=== PATIENT | female | born 1975 | race Caucasian/White ===

== ENCOUNTER 2020-10-08 15:33 | Outpatient (REF) | payer MEDICAID, SELFPAY ==
--- NOTE | 2020-10-08 15:41 | US_ITS ---
EXAMINATION: US PELVIS, COMPLETE CLINICAL INFORMATION: Severe lower abdominal pain COMPARISON: CT abdomen and pelvis 05/05/2011 TECHNIQUE: Transabdominal and transvaginal imaging was performed. FINDINGS: LMP: 09/14/2020 Uterus is anteverted , measuring 7.8 x 3.8 x 4.8 cm. No focal uterine lesion. Question arcuate morphology on ultrasound. Endometrial thickness 0.85 cm. Nabothian cysts in the cervix. Right ovary measures 2.6 x 1.5 x 2.2 cm. Volume 4.5 mL. Left ovary measures 3.5 x 2.3 x 2.9 cm. Volume 11.1 mL. There is a 2.5 x 1.9 x 2.2 cm simple cyst. No free fluid in the cul-de-sac. US/US transvaginal IMPRESSION: 1. Question of arcuate morphology of the uterus. This can be further evaluated with MRI. 2. Left ovary 2.5 cm simple cyst.
--- NOTE | 2020-10-08 15:41 | US_ITS ---
EXAMINATION: US PELVIS, COMPLETE CLINICAL INFORMATION: Severe lower abdominal pain COMPARISON: CT abdomen and pelvis 05/05/2011 TECHNIQUE: Transabdominal and transvaginal imaging was performed. FINDINGS: LMP: 09/14/2020 Uterus is anteverted , measuring 7.8 x 3.8 x 4.8 cm. No focal uterine lesion. Question arcuate morphology on ultrasound. Endometrial thickness 0.85 cm. Nabothian cysts in the cervix. Right ovary measures 2.6 x 1.5 x 2.2 cm. Volume 4.5 mL. Left ovary measures 3.5 x 2.3 x 2.9 cm. Volume 11.1 mL. There is a 2.5 x 1.9 x 2.2 cm simple cyst. No free fluid in the cul-de-sac. US/US pelvic complete IMPRESSION: 1. Question of arcuate morphology of the uterus. This can be further evaluated with MRI. 2. Left ovary 2.5 cm simple cyst.
== END 2020-10-08 15:34 | disposition home or self-care (01) ==
LOC: HO.HMGCX 15:33
PROVIDERS: PCP Internal Medicine
DX: R10.30 Lower abdominal pain, unspecified (principal)
CPT/HCPCS: 76830; 76856

== ENCOUNTER 2021-09-27 03:41 | Emergency (ER) | payer MEDICAID, SELFPAY ==
[2021-09-27 03:44] VITALS: BP 172/93; PULSE 99; RESP 18; TEMP 36.4; O2SAT 97; BMI 21.2
[2021-09-27 04:39] LABS: MANUAL DIFF FLAG NO
[2021-09-27 04:40] LABS: Basophils Percent Auto 0.3 % (0-2); Eosinophils Absolute Auto 0.2 X10*3/uL (0.0-0.4); Eosinophils Percent Auto 2.2 % (0-4); Hematocrit 38.7 % (37.0-47.0); Imm Gran Abs Auto 0.01 X10*3/uL (0.00-0.03); Imm Gran Pct Auto 0.1 % (0.0-0.4); Lymphocytes Absolute Auto 1.6 X10*3/uL (1.2-4.9); Lymphocytes Percent Auto 24.3 % (20-40); Mean Corpuscular HGB Conc 36.2 g/dl (31.0-35.0); Mean Platelet Volume 9.1 fL (9.4-12.3); Monocytes Absolute Auto 0.5 X10*3/uL (0.1-1.2); Monocytes Percent Auto 7.6 % (2-11); Neutrophils Absolute Auto 4.36 x10*3/uL (2.0-8.3); Neutrophils Percent Auto 65.5 % (45-73); Platelet Count 290 X10*3/uL (160-400); Red Blood Count 4.66 X10*6/uL (4.20-5.50); Red Cell Distribution Width 12.8 % (11.0-16.0); White Blood Count 6.7 X10*3/uL (4.8-10.8)
[2021-09-27 04:56] LABS: Appearance Urine CLEAR; Color Urine YELLOW; Glucose Urine UA NEG (NEG); Leukocyte Esterase Urine NEG (NEG); Nitrite Urine NEG (NEG); Specific Gravity - Urine 1.025 (1.005-1.025); UACC Culture Trigger NO; Urine Blood TRACE (NEG); Urine Ketones >=80 MG/DL (NEG); Urine Protein NEG (NEG-TRACE)
[2021-09-27 04:56] LABS: Alanine Aminotransferase 10 U/L (0-31); Albumin Level 4.6 g/dL (3.5-5.0); Alkaline Phosphatase 48 U/L (39-117); Anion Gap 13 (12-20); Aspartate Amino Transferase 26 U/L (5-31); Bilirubin Total 0.7 mg/dL (0.0-1.0); Blood Urea Nitrogen 9 mg/dL (9-16); COVID-19 Test Negative (Negative); Calcium 10.7 mg/dL (8.4-10.2); Carbon Dioxide 31 mmol/L (22-29); Chloride 99 mmol/L (96-108); Creatinine Clr Calc Pharmacy 79.1; Estimated Glomerular Filt Rate > 60; Glucose Random 96 mg/dL (60-115); IDNOW Serial# 9DD0AD1C; Potassium 3.4 mmol/L (3.3-5.1); Sodium 140 mmol/L (135-145); Total Protein 7.6 g/dL (6.5-8.0)
[2021-09-27 04:59] LABS: Urine Pregnancy NEGATIVE (NEGATIVE)
[2021-09-27 05:00] LABS: UPreg QC Valid YES
[2021-09-27 05:03] LABS: Bacteria Urine 2+ /LPF; Mucus Urine 2+ /LPF; Squamous Epithelial Cell Urine 1+ /LPF
[2021-09-27] MEDS: 0.9 % Sodium Chloride 2,000 ML 999 ML IV (06:27)
[2021-09-27] MEDS: ondansetron HCL 4 MG/2 ML VIAL IVPUSH (06:28)
--- NOTE | 2021-09-27 07:15 | ED_ITS ---
HPI - General Adult General Chief complaint: General Medical Stated complaint: insomnia, vomiting Time Seen by Provider: 09/27/21 05:29 Source: patient Mode of arrival: ambulatory History of Present Illness HPI narrative: This is a 46-year-old female who presents with complaints of 3-4 days nonbloody nausea/vomiting without abdominal pain or diarrhea and denies any urinary pain/burning/frequency. Patient denies thinking that this was secondary to contaminated food. Patient states after this started she was unable to take her medications which include alprazolam and that she has struggled with insomnia since. In addition the patient endorses that she does smoke marijuana and the last use was approximately 3-4 days ago. Related Data Allergies Allergy/AdvReac Type Severity Reaction Status Date / Time apple [APPLES] Allergy Unknown ITCHY Verified 09/27/21 06:26 banana [BANANA] Allergy Unknown ANAPHYLAXIS Verified 09/27/21 06:26 carrot [CARROT] Allergy Unknown UNKNOWN Verified 09/27/21 06:26 peach [PEACHES] Allergy Unknown ITCHY Verified 09/27/21 06:26 pear [PEAR] Allergy Unknown ITCHING Verified 09/27/21 06:26 plum [PLUMS] Allergy Unknown ITCHY Verified 09/27/21 06:26 strawberry [STRAWBERRY] Allergy Unknown ITCHY Verified 09/27/21 06:26 vancomycin [Vancomycin] Allergy Unknown RASH, Verified 09/27/21 06:26 HIVES, hives ENVIRONMENTAL Allergy Unknown ITCHY Uncoded 08/14/20 15:19 Review of Systems Review of Systems: Pertinent positives and negatives as stated in HPI 10 point review of systems is otherwise negative. PMFSH Past Medical History Source: nursing notes reviewed Social History Social History Advance Directives: No Advance Directives Information Provided: Yes Patient : No Physical Exam Vital Signs: Vital Signs: Last Vital Signs Temp 97.6 F 09/27/21 03:44 Pulse 99 09/27/21 03:44 Resp 18 09/27/21 03:44 BP 172/93 H 09/27/21 03:44 Pulse Ox 97 09/27/21 03:44 Body Mass Index 21.2 VITAL SIGNS: Reviewed. GENERAL: Well developed, well nourished, in no acute distress. HEAD: Normocephalic/atraumatic EYES: PERRLA, EOMI OROPHARYNX: no oral lesions noted, posterior pharynx clear, dry mucosa NECK: Supple, no adenopathy LUNGS: Normal breath sounds. No adventitious sounds or accessory muscle use. SpO2<97> CARDIOVASCULAR: Regular rate and rhythm without noted murmurs ABDOMEN: Soft, non-tender, non-distended with bowel sounds. NEUROLOGIC: Alert and oriented x 4. Course Course Course Narrative: 46-year-old female with history and clinical presentation suggestive of cannabis related nausea/vomiting versus gastroenteritis sequence dehydration. Review of all investigations without acute findings to better explain patient's presentation. She is currently receiving 2 L of IV fluid resuscitation as well as antiemetic, and then will be given a p.o. challenge. Signed out to Dr Grey: Plan for discharge after tolerating oral intake and encourage patient to take her own prescription medications for her insomnia. Medical Decision Making Lab Data Result diagrams: 09/27/21 04:32 09/27/21 04:32 Labs: Lab Results 09/27/21 09/27/21 09/27/21 Range/Units 04:32 04:32 04:32 WBC 6.7 (4.8-10.8) X10*3/uL RBC 4.66 (4.20-5.50) X10*6/uL Hgb 14.0 (12.0-16.0) g/dl Hct 38.7 (37.0-47.0) % MCV 83.0 (80.0-98.0) fL MCH 30.0 (27.0-33.0) pg MCHC 36.2 H (31.0-35.0) g/dl RDW 12.8 (11.0-16.0) % Plt Count 290 (160-400) X10*3/uL MPV 9.1 L (9.4-12.3) fL Immature Gran % (Auto) 0.1 (0.0-0.4) % Neut % (Auto) 65.5 (45-73) % Lymph % (Auto) 24.3 (20-40) % [place] % (Auto) 7.6 (2-11) % Eos % (Auto) 2.2 (0-4) % Baso % (Auto) 0.3 (0-2) % Lymph # (Auto) 1.6 (1.2-4.9) X10*3/uL [place] # (Auto) 0.5 (0.1-1.2) X10*3/uL Eos # (Auto) 0.2 (0.0-0.4) X10*3/uL Baso # (Auto) 0.0 (0.0-0.2) X10*3/uL Abs Immat Gran (auto) 0.01 (0.00-0.03) X10*3/uL Absolute Neuts (auto) 4.36 (2.0-8.3) x10*3/uL Absolute Nucleated RBC 0.000 (0.0-0.012) X10*3/uL Nucleated RBC % (auto) 0.0 (0.0-0.2) /100WBC Sodium 140 (135-145) mmol/L Potassium 3.4 (3.3-5.1) mmol/L Chloride 99 (96-108) mmol/L Carbon Dioxide 31 H (22-29) mmol/L Anion Gap 13 (12-20) BUN 9 (9-16) mg/dL Creatinine 0.75 (0.5-1.4) mg/dL Estim Creat Clear Calc 79.1 Estimated GFR > 60 Random Glucose 96 (60-115) mg/dL Calcium 10.7 H (8.4-10.2) mg/dL Total Bilirubin 0.7 (0.0-1.0) mg/dL AST 26 (5-31) U/L ALT 10 (0-31) U/L Alkaline Phosphatase 48 (39-117) U/L Total Protein 7.6 (6.5-8.0) g/dL Albumin 4.6 (3.5-5.0) g/dL Urine Color Urine Appearance Urine pH (5.0-8.0) Ur Specific [place] (1.005-1.025) Urine Protein (NEG-TRACE) MG/DL Urine Glucose (UA) (NEG) MG/DL Urine Ketones (NEG) MG/DL Urine Blood (NEG) Urine Nitrite (NEG) Ur Leukocyte Esterase (NEG) Urine RBC (0) /HPF Urine WBC (0-4) /HPF Ur Squamous Epith Cells /LPF Urine Bacteria /LPF Urine Mucus /LPF Urine Test (NEGATIVE) COVID-19 (REGAN) Negative (Negative) COVID-19 Clin Com See Note 09/27/21 09/27/21 Range/Units 04:45 04:45 WBC (4.8-10.8) X10*3/uL RBC (4.20-5.50) X10*6/uL Hgb (12.0-16.0) g/dl Hct (37.0-47.0) % MCV (80.0-98.0) fL MCH (27.0-33.0) pg MCHC (31.0-35.0) g/dl RDW (11.0-16.0) % Plt Count (160-400) X10*3/uL MPV (9.4-12.3) fL Immature Gran % (Auto) (0.0-0.4) % Neut % (Auto) (45-73) % Lymph % (Auto) (20-40) % [place] % (Auto) (2-11) % Eos % (Auto) (0-4) % Baso % (Auto) (0-2) % Lymph # (Auto) (1.2-4.9) X10*3/uL [place] # (Auto) (0.1-1.2) X10*3/uL Eos # (Auto) (0.0-0.4) X10*3/uL Baso # (Auto) (0.0-0.2) X10*3/uL Abs Immat Gran (auto) (0.00-0.03) X10*3/uL Absolute Neuts (auto) (2.0-8.3) x10*3/uL Absolute Nucleated RBC (0.0-0.012) X10*3/uL Nucleated RBC % (auto) (0.0-0.2) /100WBC Sodium (135-145) mmol/L Potassium (3.3-5.1) mmol/L Chloride (96-108) mmol/L Carbon Dioxide (22-29) mmol/L Anion Gap (12-20) BUN (9-16) mg/dL Creatinine (0.5-1.4) mg/dL Estim Creat Clear Calc Estimated GFR Random Glucose (60-115) mg/dL Calcium (8.4-10.2) mg/dL Total Bilirubin (0.0-1.0) mg/dL AST (5-31) U/L ALT (0-31) U/L Alkaline Phosphatase (39-117) U/L Total Protein (6.5-8.0) g/dL Albumin (3.5-5.0) g/dL Urine Color YELLOW Urine Appearance CLEAR Urine pH 6.0 (5.0-8.0) Ur Specific [place] 1.025 (1.005-1.025) Urine Protein NEG (NEG-TRACE) MG/DL Urine Glucose (UA) NEG (NEG) MG/DL Urine Ketones >=80 (NEG) MG/DL Urine Blood TRACE (NEG) Urine Nitrite NEG (NEG) Ur Leukocyte Esterase NEG (NEG) Urine RBC 1-4 (0) /HPF Urine WBC 1-4 (0-4) /HPF Ur Squamous Epith Cells 1+ /LPF Urine Bacteria 2+ /LPF Urine Mucus 2+ /LPF Urine Test NEGATIVE (NEGATIVE) COVID-19 (REGAN) (Negative) COVID-19 Clin Com Discharge Plan Discharge Clinical Impression: Nausea & vomiting, Dehydration, Insomnia Patient Disposition: Home, Self-Care Instructions: Dehydration (ED), Acute Nausea and Vomiting (ED), Gastroenteritis (ED) Additional Instructions: 1. Resume all home medications as prescribed. Return to the ER for acute worsening of symptoms.
== END 2021-09-27 09:29 | disposition home or self-care (01) ==
PROVIDERS: Emergency Provider Emergency Medicine
DX: R11.2 Nausea with vomiting, unspecified (principal); E86.0 Dehydration; G47.00 Insomnia, unspecified; F12.90 Cannabis use, unspecified, uncomplicated; Z20.822 Contact with and (suspected) exposure to COVID-19
CPT/HCPCS: 36415; 80053; 81001; 81025; 85025; 87635; 96361; 96374; 99283; 99284; J2405

== ENCOUNTER 2022-01-11 12:51 | Emergency (ER) | payer MEDICAID, SELFPAY ==
--- NOTE | ~2022-01-11 | CT_ITS ---
EXAMINATION: CTA CHEST PE STUDY CLINICAL INFORMATION: SOB, JOHNSON, ? PE COMPARISON: No pertinent prior studies are available for comparison. TECHNIQUE: Prior to contrast administration, noncontrast localization images were obtained. After the administration of 65 mL of Omnipaque nonionic IV contrast, contiguous thin slice helical images were obtained through the thorax. Reformatted MIP images in the coronal and sagittal planes were obtained at the acquisition workstation. This CT examination was performed using dose optimization techniques as appropriate, variously including the following: *Automated exposure control *Adjustment of mA and/or kV according to patient size (this includes techniques or standardized protocols for targeted exams where dose is matched to indication/reason for exam; i.e. extremities or head) *Use of iterative reconstruction technique DLP: 673 mGy-cm. FINDINGS: The bolus timing on this study was acceptable for visualization of the pulmonary arterial tree. There are no intraluminal pulmonary arterial filling defects present to suggest pulmonary embolism. The lungs are clear. No abnormal pulmonary nodules or masses are appreciated. No significant hilar or mediastinal adenopathy. There is no evidence of pleural effusion or pneumothorax. The heart is normal in size. No evidence of ventricular septal bowing or right heart strain. Great vessels are normal. Otherwise the mediastinum is unremarkable. There is no pericardial effusion or pericardial thickening. Limited evaluation of the upper abdominal viscera is unremarkable. CT/CT angio chest PE protocol IMPRESSION: No evidence for pulmonary emboli. No focal airspace disease. VTE: Negative
--- NOTE | ~2022-01-11 | CT_ITS ---
EXAMINATION: CT HEAD WITHOUT CONTRAST CLINICAL INFORMATION: Dizziness. COMPARISON: CT scan of the head 06/07/2018. TECHNIQUE: Contiguous axial imaging was performed from the skull base to vertex without intravenous administration of contrast. This CT examination was performed using dose optimization techniques as appropriate, variously including the following: *Automated exposure control *Adjustment of mA and/or kV according to patient size (this includes techniques or standardized protocols for targeted exams where dose is matched to indication/reason for exam; i.e. extremities or head) *Use of iterative reconstruction technique DLP: 621 mGy-cm FINDINGS: There is no acute intracranial hemorrhage or abnormal extra-axial collection. No intracranial mass effect or midline shift. Lateral and third ventricles are normal. No hydrocephalus. Esquivel-white matter differentiation is preserved and there is no evidence acute territorial infarct. The calvarium and skull base are intact. Mastoid air cells and middle ear cavities are well aerated. No active paranasal sinus disease. CT/CT head/brain wo con IMPRESSION: Normal CT scan of the head.
--- NOTE | ~2022-01-11 | CT_ITS ---
EXAMINATION: CT ABDOMEN AND PELVIS WITH CONTRAST CLINICAL INFORMATION: Left lower quadrant abdominal pain and tenderness COMPARISON: 05/05/2000 and TECHNIQUE: Multidetector volumetric images were obtained from the superior aspect of the liver through the pubic symphysis following administration 65 mL of Omnipaque 350 intravenous contrast. Sagittal and coronal reformatted images were obtained on the technologist's workstation. Oral contrast: Not done This CT examination was performed using dose optimization techniques as appropriate, variously including the following: *Automated exposure control *Adjustment of mA and/or kV according to patient size (this includes techniques or standardized protocols for targeted exams where dose is matched to indication/reason for exam; i.e. extremities or head) *Use of iterative reconstruction technique DLP: 413.5 mGy-cm FINDINGS: LUNG BASES: The visualized lung bases are unremarkable. LIVER, GALLBLADDER, AND BILIARY TREE: The liver is normal in size, shape, and attenuation. No focal hepatic lesion or biliary ductal dilatation is present. The gallbladder is unremarkable with no evidence of radiopaque gallstones, gallbladder wall thickening, or obvious pericholecystic inflammatory changes. CBD is mildly prominent measured in pancreatic head 0.6 cm PANCREAS: Unremarkable. SPLEEN: Spleen is enlarged measured 12.8. ADRENAL GLANDS: Unremarkable. KIDNEYS AND URETERS: There are multiple cysts in the right kidney revealed largest in the lower pole measured 1.3 cm, parapelvic measured 2.4 x 2.5 cm an upper pole cyst measured 1.2 cm. There is no hydronephrosis on the right. Left kidney is unremarkable. BLADDER: Unremarkable. GASTROINTESTINAL TRACT: The small and large bowel are unremarkable. The appendix is unremarkable. There is large amount of fecal debris throughout the colon. No evidence of diverticulitis, diverticulosis, colitis, bowel obstruction. ABDOMINAL WALL: There is small fat-containing umbilical hernia. LYMPH NODES: Normal. VASCULAR: Unremarkable. 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 Adnexa are unremarkable. OSSEOUS STRUCTURES: Unremarkable. CT/CT abdomen pelvis w con IMPRESSION: Constipation. Multiple cysts in right kidney. Mildly prominent CBD. Fleischner guidelines were followed.
[2022-01-11 14:05] VITALS: BP 110/70; PULSE 84; RESP 17; TEMP 36.4; O2SAT 95; BMI 21.2
[2022-01-11 15:47] LABS: MANUAL DIFF FLAG NO
[2022-01-11 15:48] LABS: Basophils Percent Auto 0.3 % (0-2); Eosinophils Absolute Auto 0.1 X10*3/uL (0.0-0.4); Eosinophils Percent Auto 1.5 % (0-4); Hemoglobin 12.5 g/dl (12.0-16.0); Imm Gran Abs Auto 0.02 X10*3/uL (0.00-0.03); Imm Gran Pct Auto 0.3 % (0.0-0.4); Lymphocytes Absolute Auto 1.2 X10*3/uL (1.2-4.9); Mean Corpuscular HGB Conc 33.8 g/dl (31.0-35.0); Mean Corpuscular Volume 85.8 fL (80.0-98.0); Mean Platelet Volume 8.7 fL (9.4-12.3); Monocytes Absolute Auto 0.5 X10*3/uL (0.1-1.2); Neutrophils Absolute Auto 4.3 x10*3/uL (2.0-8.3); Neutrophils Percent Auto 70.9 % (45-73); Platelet Count 268 X10*3/uL (160-400); Red Blood Count 4.31 X10*6/uL (4.20-5.50); Red Cell Distribution Width 12.5 % (11.0-16.0); White Blood Count 6.1 X10*3/uL (4.8-10.8)
[2022-01-11 16:05] LABS: Alanine Aminotransferase 7 U/L (0-31); Alkaline Phosphatase 72 U/L (39-117); Anion Gap 9 (12-20); Aspartate Amino Transferase 14 U/L (5-31); Bilirubin Total 0.4 mg/dL (0.0-1.0); Blood Urea Nitrogen 13 mg/dL (9-16); Calcium 9.3 mg/dL (8.4-10.2); Carbon Dioxide 36 mmol/L (22-29); Chloride 102 mmol/L (96-108); Creatinine Clr Calc Pharmacy 76.1; Estimated Glomerular Filt Rate > 60; Glucose Random 72 mg/dL (60-115); Lipase 13 U/L (8-78); Sodium 143 mmol/L (135-145); Total Protein 7.3 g/dL (6.5-8.0)
--- NOTE | 2022-01-11 16:21 | ED_ITS ---
HPI - General Adult General Chief complaint: General Medical <Sandra Mccormack ENEIDA - Last Filed: 01/12/22 17:11> Stated complaint: SOB HEADACHE <Sandra MccormackENEIDA - Last Filed: 01/12/22 17:11> Time Seen by Provider: 01/11/22 15:50 <Sandra MccormackENEIDA - Last Filed: 01/12/22 17:11> Source: patient <Sandra Mccormack ENEIDA - Last Filed: 01/12/22 17:11> Mode of arrival: ambulatory <Sandra Mccormack ENEIDA - Last Filed: 01/12/22 17:11> Limitations: no limitations <Sandra Mccormack ENEIDA - Last Filed: 01/12/22 17:11> History of Present Illness HPI narrative: Patient is a 46-year-old female with a past medical history of substance use disorder, PTSD, depression, fibromyalgia, Emm[place] thyroiditis For which she is prescribed [place] Thyroid which she reports compliance with. Patient presents emergency department today with multiple complaints. She states that she has been having dizziness for about 1 week. It is described as the room spinning, with a sudden onset, it is episodic with ringing in her ears and nausea and vomiting. She is unable to determine whether it is made worse by movement or position changing. denies vision changes, hearing loss, drainage from the ears, ear pain, persistent headaches, unsteady gait. Patient reports the past 3 days she has been experiencing retrosternal chest pressure and intermittent palpitations in addition to shortness of breath while at rest that is worsened with exertion. She reports feeling shaking chills but is unaware as to whether she has had any fevers, she has not checked. She denies any nasal congestion, cough, sore throat. Patient is complaining of diffuse lower abdominal pain for 1 month associated with nausea and intermittent vomiting. In addition, she states that she typically has chronic constipation but over the past month has been having orange mucousy stools with every movement. denies bloody or dark emesis, bloody or dark stools, rectal pain, personal family history of colon cancer, recent unintentional weight loss, decreased appetite, urinary frequency / hesitancy /urgency, burning with micturition, abnormal vaginal bleeding, abnormal vaginal discharge, concern for STI, or possible . Patient is also requesting assistance with detox. Patient reports that she is sober from opiates for 7 years. she had been trying to wean off of her methadone and was on a very low dose but then had car difficulties and was unable to get to the methadone clinic. She reports after two days without methadone, about 3 weeks ago, she began injecting heroin intravenously to her bilateral arms. She states that she last used a couple hours prior to this interaction. She denies any additional drug usage. She denies any alcohol consumption. She reports that she was kicked out of her home and has been homeless for the past 4 weeks and she is very sad about this, but denies SI/HI. <Sandra Mccormack CNP - Last Filed: 01/12/22 17:11> Related Data Home medications: Home Medications Medication Instructions Recorded Confirmed alprazolam 1 mg tablet 1 tab PO QID PRN 01/12/22 01/12/22 topiramate 25 mg tablet 1 tab PO DAILY 01/12/22 01/12/22 <Sandra Mccormack CNP - Last Filed: 01/12/22 17:11> Allergies/adverse reactions: Allergies Allergy/AdvReac Type Severity Reaction Status Date / Time apple [APPLES] Allergy Unknown ITCHY Verified 09/27/21 06:26 banana [BANANA] Allergy Unknown ANAPHYLAXIS Verified 09/27/21 06:26 carrot [CARROT] Allergy Unknown UNKNOWN Verified 09/27/21 06:26 peach [PEACHES] Allergy Unknown ITCHY Verified 09/27/21 06:26 pear [PEAR] Allergy Unknown ITCHING Verified 09/27/21 06:26 plum [PLUMS] Allergy Unknown ITCHY Verified 09/27/21 06:26 strawberry [STRAWBERRY] Allergy Unknown ITCHY Verified 09/27/21 06:26 vancomycin [Vancomycin] Allergy Unknown RASH, Verified 09/27/21 06:26 HIVES, hives ENVIRONMENTAL Allergy Unknown ITCHY Uncoded 08/14/20 15:19 <Sandra Mccormack CNP - Last Filed: 01/12/22 17:11> Review of Systems Review of Systems: Constitutional: + chills, fatigue. No weight loss, we akness. HEENT: + Tinnitus. No visual loss, blurred vision, double vision or yellow sclera. No hearing loss, sneezing, congestion, runny nose or sore throat. Skin: No rash or itching. Cardiovascular:+ chest pressure, palpitations. No pedal edema. Respiratory: + shortness of breath, dyspnea on exertion. No cough or sputum production. Gastrointestinal: + nausea, vomiting, abnormal stools, abdominal pain. No anorexia or diarrhea. No blood in stool. Genitourinary: No burning micturition. No urinary frequency or incontinence. Neurologic: + dizziness. No headache, syncope, unilateral weakness, ataxia, numbness or tingling in the extremities. No change in bowel or bladder control. Musculoskeletal: No muscle pain, back pain, joint pain or stiffness. Hematologic: No bleeding or bruising. Lymphatics: No enlarged lymph nodes. Psychiatric: + depression, denies suicidal ideations, denies homicidal ideations.. Endocrine: No reports of sweating. No cold or heat intolerance. No polyuria or polydipsia. <Sandra Mccormack CNP - Last Filed: 01/12/22 17:11> FOR[facility], LAT[facility] Past Medical History Attestation statement: The following information was validated with the patient. <Sandra Mccormack CNP - Last Filed: 01/12/22 17:11> Source: old records reviewed <Sandra Mccomrack CNP - Last Filed: 01/12/22 17:11> Social History Social History: Social History Advance Directives: No Advance Directives Information Provided: Yes Patient : No <Sandra Mccormack CNP - Last Filed: 01/12/22 17:11> Physical Exam ED Vital Signs: Vital Signs - 24 hr 01/12/22 00:39 01/12/22 07:13 01/12/22 10:47 Temperature 98.1 F Pulse Rate 73 69 59 Respiratory Rate 12 14 14 Blood Pressure 124/80 107/60 84/47 L Pulse Oximetry 95 94 96 01/12/22 14:13 01/12/22 15:48 01/12/22 18:41 Temperature 98.1 F 97.9 F Pulse Rate 71 73 64 Respiratory Rate 14 20 20 Blood Pressure 100/66 101/61 102/74 Pulse Oximetry 97 97 98 BMI result Body Mass Index 21.2 Vital signs have been reviewed as normal and appeared to be correct. Blood pressure normal.? Heart rate normal.? Respiration rate normal. Temperature normal.? Oxygen saturation normal. <Sandra Mccormack CNP - Last Filed: 01/12/22 17:11> Vital Signs - 24 hr 01/12/22 00:39 01/12/22 07:13 01/12/22 10:47 Temperature 98.1 F Pulse Rate 73 69 59 Respiratory Rate 12 14 14 Blood Pressure 124/80 107/60 84/47 L Pulse Oximetry 95 94 96 01/12/22 14:13 01/12/22 15:48 01/12/22 18:41 Temperature 98.1 F 97.9 F Pulse Rate 71 73 64 Respiratory Rate 14 20 20 Blood Pressure 100/66 101/61 102/74 Pulse Oximetry 97 97 98 BMI result Body Mass Index 21.2 <MAT Park - Last Filed: 01/12/22 19:46> Appearance: Alert.?Oriented to person, place and time. No acute distress.?Normal affect. Head: Normocephalic, atraumatic. No head, sinus or TMJ tenderness.? Eyes: Sclera white, conjunctiva pink. PERRL, 3 mm bilaterally. Visual pierce full to confrontation, EOMi.?No Nystagmus. Ears: Bilateral ear canals clear, TM visible with good cone of light.? Nose: Nasal mucosa pink and moist with midline septum, nares patent bilaterally.? Mouth/ Throat: Oral mucosa pink and moist without lesions. Pharynx without exudate, tonsils symmetric, no adenopathy.??? Neck: Normal inspection.? Neck supple.?? CVS: Heart sounds normal. Normal heart rate and rhythm.? Pulses normal.?No JVD.? Respiratory: No respiratory distress.? Lung sounds clear to auscultation bilaterally?? Abdomen: + tenderness to palpation to the diffuse lower abdomen. Normoactive bowel sounds. No pulsatile mass.?? Skin: Skin warm and dry.?skin color appears slightly pale for ethnicity. Normal skin turgor.??yellow discoloration surrounding injection sites to the bilateral forearms free from erythema, swelling, active drainage, no abscess. Extremities: No lower extremity edema.? No calf ttp? Neuro: Moves all extremities spontaneously. Sensation intact bilaterally. No focal neuro deficits. CN II-XII intact. Ambulates with normal steady gait. Level of consciousness: Appropriate for age. motor strength to right and left upper extremity 5/5, right and left lower extremity 5/5. Speech is normal. <Sandra Mccormack CNP - Last Filed: 01/12/22 17:11> Course Course Course Narrative: Patient is a 46-year-old female presenting to emergency department for multiple complaints as noted in HPI. she appears fatigued, she is hemodynamically stable with no hypotension, no tachycardia, she is afebrile, no hypoxia. Will obtain CBC to evaluate for leukocytosis/ anemia, CMP and lipase to evaluate for abnormal electrolytes/abnormal renal function/ abnormal hepatic / biliary function, TSH evaluate for abnormal thyroid function, troponin and EKG to evaluate for ischemia, in the setting of recent IV drug usage, will obtain sed rate and CRP to evaluate for endocarditis, COVID-19 testing will be obtained, given the duration of her abnormal stools will obtain stool cultures/ WBC/ O&P/C difficile, urinalysis evaluate for urinary tract infection and urine test, in addition to drug abuse screen. CT of the head to exclude intracranial pathology, CT of the abdomen to evaluate for colitis, diverticuliti s her CT angio of the chest to evaluate for pulmonary embolism. patient received normal saline 1 L IVF, Zofran IV for nausea, Toradol IV for pain. Disposition will be pending results. Once medically cleared, patient can be evaluated by head track coach for assistance with detox. <Sandra Mccormack CNP - Last Filed: 01/12/22 17:11> Reevaluation(s) Reevaluation #1: CBC and CMP are overall unremarkable, lipase is normal. EKG without any concerns for acute ischemia. Patient signed out to [facility] [place] [facility] pending labs, CT head, CT chest, CT abdomen, urinalysis, stool studies, evaluation with a head track coach <Sandra Mccormack CNP - Last Filed: 01/12/22 17:11> Time: 17:31 <Sandra Mccormack CNP - Last Filed: 01/12/22 17:11> Reevaluation #2: Patient to be discharged to [facility]. <MAT Park - Last Filed: 01/12/22 19:46> Time: 20:00 <MAT Park - Last Filed: 01/12/22 19:46> Medical Decision Making Lab Data Result diagrams: : 01/11/22 15:39 01/11/22 15:39 <Sandra Mccormack CNP - Last Filed: 01/12/22 17:11> Labs: Lab Results 01/11/22 01/11/22 01/11/22 Range/Units 15:39 15:39 15:39 WBC 6.1 (4.8-10.8) X10*3/uL RBC 4.31 (4.20-5.50) X10*6/uL Hgb 12.5 (12.0-16.0) g/dl Hct 37.0 (37.0-47.0) % MCV 85.8 (80.0-98.0) fL MCH 29.0 (27.0-33.0) pg MCHC 33.8 (31.0-35.0) g/dl RDW 12.5 (11.0-16.0) % Plt Count 268 (160-400) X10*3/uL MPV 8.7 L (9.4-12.3) fL Immature Gran % (Auto) 0.3 (0.0-0.4) % Neut % (Auto) 70.9 (45-73) % Lymph % (Auto) 19.0 L (20-40) % [place] % (Auto) 8.0 (2-11) % Eos % (Auto) 1.5 (0-4) % Baso % (Auto) 0.3 (0-2) % Lymph # (Auto) 1.2 (1.2-4.9) X10*3/uL [place] # (Auto) 0.5 (0.1-1.2) X10*3/uL Eos # (Auto) 0.1 (0.0-0.4) X10*3/uL Baso # (Auto) 0.0 (0.0-0.2) X10*3/uL Abs Immat Gran (auto) 0.02 (0.00-0.03) X10*3/uL Absolute Neuts (auto) 4.3 (2.0-8.3) x10*3/uL Absolute Nucleated RBC 0.000 (0.0-0.012) X10*3/uL Nucleated RBC % (auto) 0.0 (0.0-0.2) /100WBC ESR 12 (0-20) MM/HR D-Dimer High Sensitivty NG/ML Sodium 143 (135-145) mmol/L Potassium 4.0 (3.3-5.1) mmol/L Chloride 102 (96-108) mmol/L Carbon Dioxide 36 H (22-29) mmol/L Anion Gap 9 L (12-20) BUN 13 (9-16) mg/dL Creatinine 0.78 (0.5-1.4) mg/dL Estim Creat Clear Calc 76.1 Estimated GFR > 60 Random Glucose 72 (60-115) mg/dL Calcium 9.3 D (8.4-10.2) mg/dL Total Bilirubin 0.4 (0.0-1.0) mg/dL AST 14 D (5-31) U/L ALT 7 (0-31) U/L Alkaline Phosphatase 72 D (39-117) U/L Troponin I High Sens (<3.5-17.0) ng/L C-Reactive Protein (< or = 0.50) mg/dL Total Protein 7.3 (6.5-8.0) g/dL Albumin 4.0 (3.5-5.0) g/dL Lipase 13 (8-78) U/L TSH (0.32-4.0) uIU/mL Urine Color Urine Appearance Urine pH (5.0-8.0) Ur Specific [place] (1.005-1.025) Urine Protein (NEG-TRACE) MG/DL Urine Glucose (UA) (NEG) MG/DL Urine Ketones (NEG) MG/DL Urine Blood (NEG) Urine Nitrite (NEG) Ur Leukocyte Esterase (NEG) Urine Test (NEGATIVE) Stool Leukocytes, Qual (NEGATIVE) Urine Opiates Screen (Not Detect) Urine Fentanyl Screen (Not Detect) Ur Barbiturates Screen (Not Detect) Ur Phencyclidine Scrn (Not Detect) Ur Amphetamines Screen (Not Detect) U Benzodiazepines Scrn (Not Detect) Urine Cocaine Screen (Not Detect) U Marijuana (THC) Screen (Not Detect) C. difficile Tox B Gene COVID-19 (ERGAN) (Negative) COVID-19 Clin Com 01/11/22 01/11/22 01/11/22 Range/Units 16:58 16:58 16:59 WBC (4.8-10.8) X10*3/uL RBC (4.20-5.50) X10*6/uL Hgb (12.0-16.0) g/dl Hct (37.0-47.0) % MCV (80.0-98.0) fL MCH (27.0-33.0) pg MCHC (31.0-35.0) g/dl RDW (11.0-16.0) % Plt Count (160-400) X10*3/uL MPV (9.4-12.3) fL Immature Gran % (Auto) (0.0-0.4) % Neut % (Auto) (45-73) % Lymph % (Auto) (20-40) % [place] % (Auto) (2-11) % Eos % (Auto) (0-4) % Baso % (Auto) (0-2) % Lymph # (Auto) (1.2-4.9) X10*3/uL [place] # (Auto) (0.1-1.2) X10*3/uL Eos # (Auto) (0.0-0.4) X10*3/uL Baso # (Auto) (0.0-0.2) X10*3/uL Abs Immat Gran (auto) (0.00-0.03) X10*3/uL Absolute Neuts (auto) (2.0-8.3) x10*3/uL Absolute Nucleated RBC (0.0-0.012) X10*3/uL Nucleated RBC % (auto) (0.0-0.2) /100WBC ESR (0-20) MM/HR D-Dimer High Sensitivty < 150 NG/ML Sodium (135-145) mmol/L Potassium (3.3-5.1) mmol/L Chloride (96-108) mmol/L Carbon Dioxide (22-29) mmol/L Anion Gap (12-20) BUN (9-16) mg/dL Creatinine (0.5-1.4) mg/dL Estim Creat Clear Calc Estimated GFR Random Glucose (60-115) mg/dL Calcium (8.4-10.2) mg/dL Total Bilirubin (0.0-1.0) mg/dL AST (5-31) U/L ALT (0-31) U/L Alkaline Phosphatase (39-117) U/L Troponin I High Sens (<3.5-17.0) ng/L C-Reactive Protein (< or = 0.50) mg/dL Total Protein (6.5-8.0) g/dL Albumin (3.5-5.0) g/dL Lipase (8-78) U/L TSH (0.32-4.0) uIU/mL Urine Color YELLOW Urine Appearance CLEAR Urine pH 6.0 (5.0-8.0) Ur Specific [place] >= 1.030 H (1.005-1.025) Urine Protein NEG (NEG-TRACE) MG/DL Urine Glucose (UA) NEG (NEG) MG/DL Urine Ketones NEG (NEG) MG/DL Urine Blood NEG (NEG) Urine Nitrite NEG (NEG) Ur Leukocyte Esterase NEG (NEG) Urine Test NEGATIVE (NEGATIVE) Stool Leukocytes, Qual (NEGATIVE) Urine Opiates Screen (Not Detect) Urine Fentanyl Screen (Not Detect) Ur Barbiturates Screen (Not Detect) Ur Phencyclidine Scrn (Not Detect) Ur Amphetamines Screen (Not Detect) U Benzodiazepines Scrn (Not Detect) Urine Cocaine Screen (Not Detect) U Marijuana (THC) Screen (Not Detect) C. difficile Tox B Gene COVID-19 (REGAN) (Negative) COVID-19 Clin Com 01/11/22 01/11/22 01/11/22 Range/Units 16:59 16:59 16:59 WBC (4.8-10.8) X10*3/uL RBC (4.20-5.50) X10*6/uL Hgb (12.0-16.0) g/dl Hct (37.0-47.0) % MCV (80.0-98.0) fL MCH (27.0-33.0) pg MCHC (31.0-35.0) g/dl RDW (11.0-16.0) % Plt Count (160-400) X10*3/uL MPV (9.4-12.3) fL Immature Gran % (Auto) (0.0-0.4) % Neut % (Auto) (45-73) % Lymph % (Auto) (20-40) % [place] % (Auto) (2-11) % Eos % (Auto) (0-4) % Baso % (Auto) (0-2) % Lymph # (Auto) (1.2-4.9) X10*3/uL [place] # (Auto) (0.1-1.2) X10*3/uL Eos # (Auto) (0.0-0.4) X10*3/uL Baso # (Auto) (0.0-0.2) X10*3/uL Abs Immat Gran (auto) (0.00-0.03) X10*3/uL Absolute Neuts (auto) (2.0-8.3) x10*3/uL Absolute Nucleated RBC (0.0-0.012) X10*3/uL Nucleated RBC % (auto) (0.0-0.2) /100WBC ESR (0-20) MM/HR D-Dimer High Sensitivty NG/ML Sodium (135-145) mmol/L Potassium (3.3-5.1) mmol/L Chloride (96-108) mmol/L Carbon Dioxide (22-29) mmol/L Anion Gap (12-20) BUN (9-16) mg/dL Creatinine (0.5-1.4) mg/dL Estim Creat Clear Calc Estimated GFR Random Glucose (60-115) mg/dL Calcium (8.4-10.2) mg/dL Total Bilirubin (0.0-1.0) mg/dL AST (5-31) U/L ALT (0-31) U/L Alkaline Phosphatase (39-117) U/L Troponin I High Sens < 3.5 (<3.5-17.0) ng/L C-Reactive Protein 0.34 (< or = 0.50) mg/dL Total Protein (6.5-8.0) g/dL Albumin (3.5-5.0) g/dL Lipase (8-78) U/L TSH 1.08 (0.32-4.0) uIU/mL Urine Color Urine Appearance Urine pH (5.0-8.0) Ur Specific [place] (1.005-1.025) Urine Protein (NEG-TRACE) MG/DL Urine Glucose (UA) (NEG) MG/DL Urine Ketones (NEG) MG/DL Urine Blood (NEG) Urine Nitrite (NEG) Ur Leukocyte Esterase (NEG) Urine Test (NEGATIVE) Stool Leukocytes, Qual (NEGATIVE) Urine Opiates Screen (Not Detect) Urine Fentanyl Screen (Not Detect) Ur Barbiturates Screen (Not Detect) Ur Phencyclidine Scrn (Not Detect) Ur Amphetamines Screen (Not Detect) U Benzodiazepines Scrn (Not Detect) Urine Cocaine Screen (Not Detect) U Marijuana (THC) Screen (Not Detect) C. difficile Tox B Gene COVID-19 (REGAN) Negative (Negative) COVID-19 Clin Com See Note 01/11/22 01/11/22 01/12/22 Range/Units 19:30 19:30 00:55 WBC (4.8-10.8) X10*3/uL RBC (4.20-5.50) X10*6/uL Hgb (12.0-16.0) g/dl Hct (37.0-47.0) % MCV (80.0-98.0) fL MCH (27.0-33.0) pg MCHC (31.0-35.0) g/dl RDW (11.0-16.0) % Plt Count (160-400) X10*3/uL MPV (9.4-12.3) fL Immature Gran % (Auto) (0.0-0.4) % Neut % (Auto) (45-73) % Lymph % (Auto) (20-40) % [place] % (Auto) (2-11) % Eos % (Auto) (0-4) % Baso % (Auto) (0-2) % Lymph # (Auto) (1.2-4.9) X10*3/uL [place] # (Auto) (0.1-1.2) X10*3/uL Eos # (Auto) (0.0-0.4) X10*3/uL Baso # (Auto) (0.0-0.2) X10*3/uL Abs Immat Gran (auto) (0.00-0.03) X10*3/uL Absolute Neuts (auto) (2.0-8.3) x10*3/uL Absolute Nucleated RBC (0.0-0.012) X10*3/uL Nucleated RBC % (auto) (0.0-0.2) /100WBC ESR (0-20) MM/HR D-Dimer High Sensitivty NG/ML Sodium (135-145) mmol/L Potassium (3.3-5.1) mmol/L Chloride (96-108) mmol/L Carbon Dioxide (22-29) mmol/L Anion Gap (12-20) BUN (9-16) mg/dL Creatinine (0.5-1.4) mg/dL Estim Creat Clear Calc Estimated GFR Random Glucose (60-115) mg/dL Calcium (8.4-10.2) mg/dL Total Bilirubin (0.0-1.0) mg/dL AST (5-31) U/L ALT (0-31) U/L Alkaline Phosphatase (39-117) U/L Troponin I High Sens (<3.5-17.0) ng/L C-Reactive Protein (< or = 0.50) mg/dL Total Protein (6.5-8.0) g/dL Albumin (3.5-5.0) g/dL Lipase (8-78) U/L TSH (0.32-4.0) uIU/mL Urine Color Urine Appearance Urine pH (5.0-8.0) Ur Specific [place] (1.005-1.025) Urine Protein (NEG-TRACE) MG/DL Urine Glucose (UA) (NEG) MG/DL Urine Ketones (NEG) MG/DL Urine Blood (NEG) Urine Nitrite (NEG) Ur Leukocyte Esterase (NEG) Urine Test (NEGATIVE) Stool Leukocytes, Qual NEGATIVE (NEGATIVE) Urine Opiates Screen Not Detected (Not Detect) Urine Fentanyl Screen POSITIVE H (Not Detect) Ur Barbiturates Screen Not Detected (Not Detect) Ur Phencyclidine Scrn Not Detected (Not Detect) Ur Amphetamines Screen Not Detected (Not Detect) U Benzodiazepines Scrn POSITIVE H (Not Detect) Urine Cocaine Screen Not Detected (Not Detect) U Marijuana (THC) Screen POSITIVE H (Not Detect) C. difficile Tox B Gene Cancelled COVID-19 (REGAN) (Negative) COVID-19 Clin Com <Sandra Mccormack CNP - Last Filed: 01/12/22 17:11> Lab Results 01/11/22 01/11/22 01/11/22 Range/Units 15:39 15:39 15:39 WBC 6.1 (4.8-10.8) X10*3/uL RBC 4.31 (4.20-5.50) X10*6/uL Hgb 12.5 (12.0-16.0) g/dl Hct 37.0 (37.0-47.0) % MCV 85.8 (80.0-98.0) fL MCH 29.0 (27.0-33.0) pg MCHC 33.8 (31.0-35.0) g/dl RDW 12.5 (11.0-16.0) % Plt Count 268 (160-400) X10*3/uL MPV 8.7 L (9.4-12.3) fL Immature Gran % (Auto) 0.3 (0.0-0.4) % Neut % (Auto) 70.9 (45-73) % Lymph % (Auto) 19.0 L (20-40) % [place] % (Auto) 8.0 (2-11) % Eos % (Auto) 1.5 (0-4) % Baso % (Auto) 0.3 (0-2) % Lymph # (Auto) 1.2 (1.2-4.9) X10*3/uL [place] # (Auto) 0.5 (0.1-1.2) X10*3/uL Eos # (Auto) 0.1 (0.0-0.4) X10*3/uL Baso # (Auto) 0.0 (0.0-0.2) X10*3/uL Abs Immat Gran (auto) 0.02 (0.00-0.03) X10*3/uL Absolute Neuts (auto) 4.3 (2.0-8.3) x10*3/uL Absolute Nucleated RBC 0.000 (0.0-0.012) X10*3/uL Nucleated RBC % (auto) 0.0 (0.0-0.2) /100WBC ESR 12 (0-20) MM/HR D-Dimer High Sensitivty NG/ML Sodium 143 (135-145) mmol/L Potassium 4.0 (3.3-5.1) mmol/L Chloride 102 (96-108) mmol/L Carbon Dioxide 36 H (22-29) mmol/L Anion Gap 9 L (12-20) BUN 13 (9-16) mg/dL Creatinine 0.78 (0.5-1.4) mg/dL Estim Creat Clear Calc 76.1 Estimated GFR > 60 Random Glucose 72 (60-115) mg/dL Calcium 9.3 D (8.4-10.2) mg/dL Total Bilirubin 0.4 (0.0-1.0) mg/dL AST 14 D (5-31) U/L ALT 7 (0-31) U/L Alkaline Phosphatase 72 D (39-117) U/L Troponin I High Sens (<3.5-17.0) ng/L C-Reactive Protein (< or = 0.50) mg/dL Total Protein 7.3 (6.5-8.0) g/dL Albumin 4.0 (3.5-5.0) g/dL Lipase 13 (8-78) U/L TSH (0.32-4.0) uIU/mL Urine Color Urine Appearance Urine pH (5.0-8.0) Ur Specific [place] (1.005-1.025) Urine Protein (NEG-TRACE) MG/DL Urine Glucose (UA) (NEG) MG/DL Urine Ketones (NEG) MG/DL Urine Blood (NEG) Urine Nitrite (NEG) Ur Leukocyte Esterase (NEG) Urine Test (NEGATIVE) Stool Leukocytes, Qual (NEGATIVE) Urine Opiates Screen (Not Detect) Urine Fentanyl Screen (Not Detect) Ur Barbiturates Screen (Not Detect) Ur Phencyclidine Scrn (Not Detect) Ur Amphetamines Screen (Not Detect) U Benzodiazepines Scrn (Not Detect) Urine Cocaine Screen (Not Detect) U Marijuana (THC) Screen (Not Detect) C. difficile Tox B Gene COVID-19 (REGAN) (Negative) COVID-19 Clin Com 01/11/22 01/11/22 01/11/22 Range/Units 16:58 16:58 16:59 WBC (4.8-10.8) X10*3/uL RBC (4.20-5.50) X10*6/uL Hgb (12.0-16.0) g/dl Hct (37.0-47.0) % MCV (80.0-98.0) fL MCH (27.0-33.0) pg MCHC (31.0-35.0) g/dl RDW (11.0-16.0) % Plt Count (160-400) X10*3/uL MPV (9.4-12.3) fL Immature Gran % (Auto) (0.0-0.4) % Neut % (Auto) (45-73) % Lymph % (Auto) (20-40) % [place] % (Auto) (2-11) % Eos % (Auto) (0-4) % Baso % (Auto) (0-2) % Lymph # (Auto) (1.2-4.9) X10*3/uL [place] # (Auto) (0.1-1.2) X10*3/uL Eos # (Auto) (0.0-0.4) X10*3/uL Baso # (Auto) (0.0-0.2) X10*3/uL Abs Immat Gran (auto) (0.00-0.03) X10*3/uL Absolute Neuts (auto) (2.0-8.3) x10*3/uL Absolute Nucleated RBC (0.0-0.012) X10*3/uL Nucleated RBC % (auto) (0.0-0.2) /100WBC ESR (0-20) MM/HR D-Dimer High Sensitivty < 150 NG/ML Sodium (135-145) mmol/L Potassium (3.3-5.1) mmol/L Chloride (96-108) mmol/L Carbon Dioxide (22-29) mmol/L Anion Gap (12-20) BUN (9-16) mg/dL Creatinine (0.5-1.4) mg/dL Estim Creat Clear Calc Estimated GFR Random Glucose (60-115) mg/dL Calcium (8.4-10.2) mg/dL Total Bilirubin (0.0-1.0) mg/dL AST (5-31) U/L ALT (0-31) U/L Alkaline Phosphatase (39-117) U/L Troponin I High Sens (<3.5-17.0) ng/L C-Reactive Protein (< or = 0.50) mg/dL Total Protein (6.5-8.0) g/dL Albumin (3.5-5.0) g/dL Lipase (8-78) U/L TSH (0.32-4.0) uIU/mL Urine Color YELLOW Urine Appearance CLEAR Urine pH 6.0 (5.0-8.0) Ur Specific [place] >= 1.030 H (1.005-1.025) Urine Protein NEG (NEG-TRACE) MG/DL Urine Glucose (UA) NEG (NEG) MG/DL Urine Ketones NEG (NEG) MG/DL Urine Blood NEG (NEG) Urine Nitrite NEG (NEG) Ur Leukocyte Esterase NEG (NEG) Urine Test NEGATIVE (NEGATIVE) Stool Leukocytes, Qual (NEGATIVE) Urine Opiates Screen (Not Detect) Urine Fentanyl Screen (Not Detect) Ur Barbiturates Screen (Not Detect) Ur Phencyclidine Scrn (Not Detect) Ur Amphetamines Screen (Not Detect) U Benzodiazepines Scrn (Not Detect) Urine Cocaine Screen (Not Detect) U Marijuana (THC) Screen (Not Detect) C. difficile Tox B Gene COVID-19 (REGAN) (Negative) COVID-19 Clin Com 01/11/22 01/11/22 01/11/22 Range/Units 16:59 16:59 16:59 WBC (4.8-10.8) X10*3/uL RBC (4.20-5.50) X10*6/uL Hgb (12.0-16.0) g/dl Hct (37.0-47.0) % MCV (80.0-98.0) fL MCH (27.0-33.0) pg MCHC (31.0-35.0) g/dl RDW (11.0-16.0) % Plt Count (160-400) X10*3/uL MPV (9.4-12.3) fL Immature Gran % (Auto) (0.0-0.4) % Neut % (Auto) (45-73) % Lymph % (Auto) (20-40) % [place] % (Auto) (2-11) % Eos % (Auto) (0-4) % Baso % (Auto) (0-2) % Lymph # (Auto) (1.2-4.9) X10*3/uL [place] # (Auto) (0.1-1.2) X10*3/uL Eos # (Auto) (0.0-0.4) X10*3/uL Baso # (Auto) (0.0-0.2) X10*3/uL Abs Immat Gran (auto) (0.00-0.03) X10*3/uL Absolute Neuts (auto) (2.0-8.3) x10*3/uL Absolute Nucleated RBC (0.0-0.012) X10*3/uL Nucleated RBC % (auto) (0.0-0.2) /100WBC ESR (0-20) MM/HR D-Dimer High Sensitivty NG/ML Sodium (135-145) mmol/L Potassium (3.3-5.1) mmol/L Chloride (96-108) mmol/L Carbon Dioxide (22-29) mmol/L Anion Gap (12-20) BUN (9-16) mg/dL Creatinine (0.5-1.4) mg/dL Estim Creat Clear Calc Estimated GFR Random Glucose (60-115) mg/dL Calcium (8.4-10.2) mg/dL Total Bilirubin (0.0-1.0) mg/dL AST (5-31) U/L ALT (0-31) U/L Alkaline Phosphatase (39-117) U/L Troponin I High Sens < 3.5 (<3.5-17.0) ng/L C-Reactive Protein 0.34 (< or = 0.50) mg/dL Total Protein (6.5-8.0) g/dL Albumin (3.5-5.0) g/dL Lipase (8-78) U/L TSH 1.08 (0.32-4.0) uIU/mL Urine Color Urine Appearance Urine pH (5.0-8.0) Ur Specific [place] (1.005-1.025) Urine Protein (NEG-TRACE) MG/DL Urine Glucose (UA) (NEG) MG/DL Urine Ketones (NEG) MG/DL Urine Blood (NEG) Urine Nitrite (NEG) Ur Leukocyte Esterase (NEG) Urine Test (NEGATIVE) Stool Leukocytes, Qual (NEGATIVE) Urine Opiates Screen (Not Detect) Urine Fentanyl Screen (Not Detect) Ur Barbiturates Screen (Not Detect) Ur Phencyclidine Scrn (Not Detect) Ur Amphetamines Screen (Not Detect) U Benzodiazepines Scrn (Not Detect) Urine Cocaine Screen (Not Detect) U Marijuana (THC) Screen (Not Detect) C. difficile Tox B Gene COVID-19 (REGAN) Negative (Negative) COVID-19 Clin Com See Note 01/11/22 01/11/22 01/12/22 Range/Units 19:30 19:30 00:55 WBC (4.8-10.8) X10*3/uL RBC (4.20-5.50) X10*6/uL Hgb (12.0-16.0) g/dl Hct (37.0-47.0) % MCV (80.0-98.0) fL MCH (27.0-33.0) pg MCHC (31.0-35.0) g/dl RDW (11.0-16.0) % Plt Count (160-400) X10*3/uL MPV (9.4-12.3) fL Immature Gran % (Auto) (0.0-0.4) % Neut % (Auto) (45-73) % Lymph % (Auto) (20-40) % [place] % (Auto) (2-11) % Eos % (Auto) (0-4) % Baso % (Auto) (0-2) % Lymph # (Auto) (1.2-4.9) X10*3/uL [place] # (Auto) (0.1-1.2) X10*3/uL Eos # (Auto) (0.0-0.4) X10*3/uL Baso # (Auto) (0.0-0.2) X10*3/uL Abs Immat Gran (auto) (0.00-0.03) X10*3/uL Absolute Neuts (auto) (2.0-8.3) x10*3/uL Absolute Nucleated RBC (0.0-0.012) X10*3/uL Nucleated RBC % (auto) (0.0-0.2) /100WBC ESR (0-20) MM/HR D-Dimer High Sensitivty NG/ML Sodium (135-145) mmol/L Potassium (3.3-5.1) mmol/L Chloride (96-108) mmol/L Carbon Dioxide (22-29) mmol/L Anion Gap (12-20) BUN (9-16) mg/dL Creatinine (0.5-1.4) mg/dL Estim Creat Clear Calc Estimated GFR Random Glucose (60-115) mg/dL Calcium (8.4-10.2) mg/dL Total Bilirubin (0.0-1.0) mg/dL AST (5-31) U/L ALT (0-31) U/L Alkaline Phosphatase (39-117) U/L Troponin I High Sens (<3.5-17.0) ng/L C-Reactive Protein (< or = 0.50) mg/dL Total Protein (6.5-8.0) g/dL Albumin (3.5-5.0) g/dL Lipase (8-78) U/L TSH (0.32-4.0) uIU/mL Urine Color Urine Appearance Urine pH (5.0-8.0) Ur Specific [place] (1.005-1.025) Urine Protein (NEG-TRACE) MG/DL Urine Glucose (UA) (NEG) MG/DL Urine Ketones (NEG) MG/DL Urine Blood (NEG) Urine Nitrite (NEG) Ur Leukocyte Esterase (NEG) Urine Test (NEGATIVE) Stool Leukocytes, Qual NEGATIVE (NEGATIVE) Urine Opiates Screen Not Detected (Not Detect) Urine Fentanyl Screen POSITIVE H (Not Detect) Ur Barbiturates Screen Not Detected (Not Detect) Ur Phencyclidine Scrn Not Detected (Not Detect) Ur Amphetamines Screen Not Detected (Not Detect) U Benzodiazepines Scrn POSITIVE H (Not Detect) Urine Cocaine Screen Not Detected (Not Detect) U Marijuana (THC) Screen POSITIVE H (Not Detect) C. difficile Tox B Gene Cancelled COVID-19 (REGAN) (Negative) COVID-19 Clin Com <MAT Park - Last Filed: 01/12/22 19:46> ECG Data Attestation: I personally reviewed and interpreted this ECG as follows: <Sandra Mccormack CNP - Last Filed: 01/12/22 17:11> Prior ECG tracings: available for review <Sandra Mccormack CNP - Last Filed: 01/12/22 17:11> Interpretation: Rate: 79 Rhythm:? normal sinus rhythm [place]:? normal Normal P waves.? Normal JOCELIN.?? Normal QRS complex.?? ST T wave :?? no ST elevation no ST depression qTC: 438 prior studies:? May 2018 The study has been interpreted contemporaneously by me. <Sandra Mccormack CNP - Last Filed: 01/12/22 17:11> Discharge Plan Discharge Clinical Impression: Dizziness, Unspecified abdominal pain, Chest pain of uncertain etiology, Opiate abuse, continuous <Sandra Mccormack CNP - Last Filed: 01/12/22 17:11> [facility] <Sandra Mccormack CNP - Last Filed: 01/12/22 17:11> Transfer Details: [facility] <Sandra Mccormack CNP - Last Filed: 01/12/22 17:11> [facility] <MAT Park - Last Filed: 01/12/22 19:46> Instructions: Opioid Use Disorder (ED), Opioid Withdrawal (ED) <Sandra Mccormack CNP - Last Filed: 01/12/22 17:11> Additional Instructions: Follow up with your primary care provider. Return to the emergency department immediately if your symptoms worsen or if you develop any dizziness, shortness of breath, difficulty breathing, chest pain, blurry vision, loss of vision, nausea, vomiting, abdominal pain, fever, chills, back pain, or any other complaints. <Sandra Mccormack CNP - Last Filed: 01/12/22 17:11> Prescriptions: No Action alprazolam 1 mg tablet 1 tab PO QID PRN (Reason: Anxiety) 0RF topiramate 25 mg tablet 1 tab PO DAILY 0RF <Sandra Mccormack CNP - Last Filed: 01/12/22 17:11> Print Language: Congolese <Sandra Mccormack CNP - Last Filed: 01/12/22 17:11>
--- NOTE | 2022-01-11 16:22 | ECG_ITS ---
Test Reason : DIZZYNESS Blood Pressure : / mmHG Vent. Rate : 079 BPM Atrial Rate : 079 BPM P-R Int : 160 ms QRS Dur : 088 ms QT Int : 382 ms P-R-T Axes : 075 069 043 degrees QTc Int : 438 ms Normal sinus rhythm Nonspecific T wave abnormality Abnormal ECG When compared with ECG of 15-JUN-2018 16:52, No significant change was found Referred By: Sandra Mccormack Electronically Signed By:JEREMY CLARK MD
[2022-01-11] MEDS: 0.9 % Sodium Chloride 1,000 ML 999 ML IV (17:02)
[2022-01-11] MEDS: ondansetron HCL 4 MG/2 ML VIAL IVPUSH (17:02)
[2022-01-11 17:23] LABS: COVID-19 Test Negative (Negative)
[2022-01-11 17:28] LABS: Appearance Urine CLEAR; Color Urine YELLOW; Glucose Urine UA NEG (NEG); Leukocyte Esterase Urine NEG (NEG); Nitrite Urine NEG (NEG); Specific Gravity - Urine >= 1.030 (1.005-1.025); Urine Blood NEG (NEG); Urine Ketones NEG (NEG); Urine Protein NEG (NEG-TRACE)
[2022-01-11 17:33] LABS: Troponin-I High Sensitivity < 3.5 ng/L (<3.5-17.0)
[2022-01-11 17:34] LABS: C Reactive Protein 0.34 mg/dL (< or = 0.50)
[2022-01-11] MEDS: Ketorolac Tromethamine 30 MG/ML VIAL IVPUSH (17:36)
[2022-01-11 17:46] LABS: D Dimer High Sensitivity < 150 NG/ML
[2022-01-11 17:47] LABS: UPreg QC Valid YES; Urine Pregnancy NEGATIVE (NEGATIVE)
[2022-01-11 17:56] LABS: TSH reflex Free T4 1.08 uIU/mL (0.32-4.0)
[2022-01-11 18:00] LABS: Erythrocyte Sedimentation Rate 12 MM/HR (0-20)
[2022-01-11] MEDS: iohexoL 350 MG/ML 100 ML INFUS..BTL 65 ML IV (19:08)
[2022-01-11 20:12] LABS: Leukocytes Stool Qualitative NEGATIVE (NEGATIVE)
--- NOTE | 2022-01-11 20:59 | MHC.RECOVSUP ---
? Reason for consult:Recovery Support o Current location: ED 14 o Identified substance use concern: Heroin - Seeking ATS (detox) - Support ? Intervention: o ATS bed search started/completed/in process o Harm reduction discussion ? Plan: o Bed search in progress to o Follow up tomorrow o Patient to follow up with [facility] after discharge ? Additional information:{Patient seeking detox, referred patient to [facility], waiting for approval.
[2022-01-12 00:39] VITALS: BP 124/80; PULSE 73; RESP 12; TEMP 36.7; O2SAT 95
[2022-01-12 01:19] LABS: Amphetamine Screen Urine Not Detected (Not Detect); Barbiturates, Urine Not Detected (Not Detect); Benzodiazepines Screen Urine POSITIVE (Not Detect); Cannabinoid Screen Urine POSITIVE (Not Detect); Cocaine Screen Urine Not Detected (Not Detect); Fentanyl, urine POSITIVE (Not Detect); Opiate Screen Urine Not Detected (Not Detect); Phencyclidine Screen Urine Not Detected (Not Detect)
[2022-01-12 07:13] VITALS: BP 107/60; PULSE 69; RESP 14; O2SAT 94
[2022-01-12 10:47] VITALS: BP 84/47; PULSE 59; RESP 14; O2SAT 96
--- NOTE | 2022-01-12 13:58 | MHC.RECOVSUP ---
? Reason for consult:Recovery Support o Current location:ED14 o Identified substance use concern: - Withdrawal - Seeking ATS (detox) - Support ? Intervention: o ATS bed search started/completed/in process o Community resources provided o Harm reduction discussion ? Plan: o Bed search in progress to o Patient awaiting crisis evaluation o Patient to follow up with [facility] after discharge ? Additional information:[facility] for [facility] bed that opens at 9pm
[2022-01-12 14:13] VITALS: BP 100/66; PULSE 71; RESP 14; O2SAT 97
[2022-01-12 15:48] VITALS: BP 101/61; PULSE 73; RESP 20; TEMP 36.7; O2SAT 97
[2022-01-12 18:41] VITALS: BP 102/74; PULSE 64; RESP 20; TEMP 36.6; O2SAT 98
--- NOTE | 2022-01-12 18:42 | MHC.RECOVSUP ---
Was able to speak to the Pt.Explained that I would schedule a Lyft for her at 8:20pm to go to [facility].
== END 2022-01-12 20:13 ==
PROVIDERS: Nurse Practitioner Family; Emergency Provider Emergency Medicine; PCP Internal Medicine
DX: R42 Dizziness and giddiness (principal); R10.9 Unspecified abdominal pain; R07.9 Chest pain, unspecified; F11.20 Opioid dependence, uncomplicated; Z20.822 Contact with and (suspected) exposure to COVID-19
CPT/HCPCS: 36415; 70450; 71275; 74177; 80053; 80307; 81003; 81025; 83690; 84443; 84484; 85025; 85379; 85652; 86140; 87045; 87046; 87177; 87209; 87493; 87635; 89055; 93005; 96361; 96374; 96375; 99285; J1885; J2405; Q9967